=== PATIENT | female | born 1990 | race African-American/Black ===

== ENCOUNTER 2017-09-18 03:14 | Emergency (ER) | payer MEDICAID ==
[~2017-09-18] VITALS: Ht 172.7 cm; Wt 68.0 kg
[2017-09-18 03:30] VITALS: BP 108/70
[2017-09-18] MEDS ORDERED: SODIUM CHLORIDE 0.9% 1,000 ML IV ONE (03:39)
[2017-09-18] MEDS ORDERED: ONDANSETRON HCL 4MG/2ML VIAL IV STA (03:39)
[2017-09-18 04:43] LABS: BASOPHILS % 1.1 % (0.0-2.0); EOSINOPHILS % 2.2 % (0.0-5.0); HEMATOCRIT. 36.5 % (36.0-48.0); HEMOGLOBIN. 12.3 g/dL (12.0-16.0); MEAN CORPUSCULAR HEMOGLOBIN 28.1 pg (28.0-32.0); MEAN CORPUSCULAR VOLUME 83.2 fL (81.0-99.0); MEAN PLATELET VOLUME 8.4 fl (7.4-10.4); MONOCYTES % 4.2 % (2.0-8.0); NEUTROPHILS % 65.5 % (40.0-76.0); PLATELET 237 x1000/uL (130-400); RED BLOOD CELL COUNT 4.39 mill/uL (4.2-5.4); RED CELL DISTRIBUTION WIDTH 12.8 % (11.6-14.6)
[2017-09-18 04:47] LABS: INR 1.1; PROTHROMBIN TIME 10.9 sec (9.4-11.6)
[2017-09-18 04:49] LABS: CHLORIDE 107 mEq/L (98-107); ETHANOL BLOOD 208 mg/dL; HCG SCREEN NEGATIVE
[2017-09-18] MEDS ORDERED: POTASSIUM BICARB/CIT ACID 25 MEQ TABLET.EFF PO NR (05:15)
== END 2017-09-18 11:50 | disposition home or self-care (01) ==
LOC: ER 11:40
DX: T51.0X1A Toxic effect of ethanol, accidental (unintentional), initial encounter (principal); Y92.89 Other specified places as the place of occurrence of the external cause
CPT/HCPCS: 36415; 80053; 83605; 83690; 84703; 85025; 85610; 93005; 96361; 96374; 99285; G0482; J2405; J7030; Z7610